=== PATIENT | female | born 1970 | race Caucasian/White ===

== ENCOUNTER 2018-02-11 07:30 | Emergency (ER) | payer OTHER ==
[~2018-02-11] VITALS: Ht 165.1 cm; Wt 64.5 kg
[2018-02-11 07:32] VITALS: TEMP 36.6; Ht 165.1 cm; Wt 64.5 kg
[2018-02-11] MEDS ORDERED: SODIUM CHLORIDE 0.9% 1000ML 1,000 ML IV SCH (07:46)
[2018-02-11 08:15] LABS: BASO % 0.3 %; BASO ABS # 0.02 K/uL (0-0.2); EOS % 3.1 %; HEMATOCRIT 39.3 % (37-47); HEMOGLOBIN 13.3 g/dL (12.0-16.0); IG# 0.01 K/uL (0.00-0.02); LYMPH % 26.3 %; LYMPH ABS # 1.71 K/uL (1.2-3.4); MEAN CELL VOLUME 89.5 fL (80-100); MEAN CORPUSCULAR HEMOGLOBIN 30.3 pg (25-34); MEAN CORPUSCULAR HGB CONC 33.8 g/dl (32-36); MEAN PLATELET VOLUME 9.3 fL (7.4-10.4); MONO % 6.6 %; MONO ABS # 0.43 K/uL (0.11-0.59); NEUT % 63.5 %; NEUT ABS # 4.14 K/uL (1.4-6.5); PLATELET COUNT 312 K/uL (130-400); RED CELL DISTRIBUTION WIDTH CV 12.6 % (11.5-14.5); RED CELL DISTRIBUTION WIDTH SD 40.8 fL (36.4-46.3); WHITE BLOOD COUNT 6.51 K/uL (4.8-10.8)
[2018-02-11] MEDS ORDERED: BCPILLS PO (08:21)
[2018-02-11 08:26] VITALS: O2SAT 94
[2018-02-11 08:26] LABS: PTT PATIENT 26.6 SECONDS (21.0-31.0)
--- NOTE | 2018-02-11 08:29 | DIAGNOSTIC IMAGING REPORT ---
HEAD CT NONCONTRAST CT DOSE: 638.56 mGycm HISTORY: Right-sided headache. Stroke TECHNIQUE: Multiaxial CT images of the head were performed without the use of intravenous contrast. Automated exposure control was utilized for this study. A dose lowering technique was utilized adhering to the principles of ALARA. Comparison: Head CT 11/04/2009.. Findings: The paranasal sinuses and mastoid air cells are clear. The calvarium and skull base are intact. The ventricles and sulci are within normal limits. There is no mass, hematoma, midline shift, or acute infarct. Impression: No acute intracranial abnormality. Electronically signed by: Mohamud Morrow M.D. 02/11/2018 8:28 AM Dictated Date/Time: 02/11/2018 8:13 AM
[2018-02-11 08:32] LABS: BLOOD UREA NITROGEN 12 mg/dl (7-18); CALCIUM 9.1 mg/dl (8.5-10.1); CARBON DIOXIDE 25 mmol/L (21-32); CREATININE 0.85 mg/dl (0.60-1.20); GLUCOSE 82 mg/dl (70-99); SODIUM 139 mmol/L (136-145)
[2018-02-11 08:37] LABS: CKMB 0.7 ng/ml (0.5-3.6)
--- NOTE | 2018-02-11 09:01 | EMERGENCY ROOM VISIT NOTE ---
History First contact with patient: 07:36 Chief Complaint: EYE PAIN Stated Complaint: PAIN IN RIGHT EYE History of Present Illness The patient is a 48 year old female who presents to the Emergency Room via private vehicle accompanied by male with complaints of "pain in right ankle. The patient states that 2 days ago she began with difficulty focusing with her right eye. This progressed irritation. She also notes that about 5 days ago she developed tingling in the right side of her mouth. Yesterday while eating she had difficulty pursing her lips around the fork to eat the food. This morning upon awakening she had facial droop at the right side of the mouth. She cannot fully close the right eye. She denies any history of diabetes, stroke, hypertension, high cholesterol. She does take control pills. She denies any speech troubles, or weakness in the extremities. Review of Systems A complete 10-point Review of Systems was discussed with the patient, with pertinent positives and negatives listed in the History of Present Illness. All remaining Review of Systems questions can be considered negative unless otherwise specified. Past Medical/Surgical History No pertinent. Family History CVA. Social History Smoking Status: Never Smoker Patient is employed and lives locally. Current/Historical Medications Scheduled Control Pills ( Control Pills), 1 TAB PO HS Prednisone Tab (Prednisone), 10 MG PO DIRECTED Valacyclovir Hcl (Valtrex), 1 GM PO TID Physical Exam Vital Signs Date Time Temp Pulse Resp B/P (MAP) Pulse Ox O2 Delivery O2 Flow Rate FiO2 02/11/18 10:34 78 16 108/78 98 Room Air 02/11/18 09:21 63 18 133/98 98 Room Air 02/11/18 08:32 60 17 117/84 98 Room Air 02/11/18 08:26 94 Room Air 02/11/18 08:14 60 19 121/80 100 02/11/18 07:58 68 02/11/18 07:32 36.6 76 20 109/69 98 Room Air Right Eye Acuity: 20/20 Left Eye Acuity: 20/25 Physical Exam VITAL SIGNS - Vital signs and nursing notes were reviewed. Stable. GENERAL -48-year-old female appearing her stated age who is in no acute distress. Communicates well with provider and answers questions appropriately. SKIN - Without rashes. No meningeal or petechial rash. No herpetic lesion. HEAD - NC/AT. When the patient angles her forehead, there is partial sparing of the right side with asymmetry. EYES - PERRL with EOMI bilaterally. Sclera anicteric. EARS - No deformities of external structures noted on gross examination bilaterally. External auditory canals without discharge or otorrhea. Tympanic membranes pearly cheng without retraction or bulging. No fluid or purulent material visualized behind the TM. Handle of malleus, umbo, cone of light, pars tensa/flaccid all easily visualized. NOSE - Midline and without cyanosis. No epistaxis or purulent drainage noted. MOUTH/OROPHARYNX - Without perioral cyanosis. Buccal mucosa pink and moist and without leukoplakia. Tongue midline with equal elevation of palate bilaterally. No tonsillar hypertrophy, erythema, or exudates noted. Fair dentition noted. When smiling or frowning the right side of the mouth droops. It is unilateral. NECK - Neck with FROM. Supple to palpation. No lymphadenopathy noted. No nuchal rigidity. LUNGS - Chest wall symmetric without accessory muscle use, intercostals retractions, or central cyanosis. Normal vesicular breath sounds CTA B/L. No wheezes, rales, or rhonchi appreciated. CARDIAC - RRR with S1/S2. No murmur, rubs, or gallops appreciated. EXTREMITIES - +5/5 strength noted in UE/LE bilaterally. NEUROLOGIC - Cranial nerves II through XII grossly intact. Sensory intact to light touch throughout. PSYCH - A&Ox3 and cooperates fully with examiner. Pt is very pleasant and interacts well with examiner. Medical Decision & Procedures ER Provider Diagnostic Interpretation: HEAD CT NONCONTRAST CT DOSE: 638.56 mGycm HISTORY: Right-sided headache. Stroke TECHNIQUE: Multiaxial CT images of the head were performed without the use of intravenous contrast. Automated exposure control was utilized for this study. A dose lowering technique was utilized adhering to the principles of ALARA. Comparison: Head CT 11/04/2009.. Findings: The paranasal sinuses and mastoid air cells are clear. The calvarium and skull base are intact. The ventricles and sulci are within normal limits. There is no mass, hematoma, midline shift, or acute infarct. Impression: No acute intracranial abnormality. Electronically signed by: Mohamud Morrow M.D. 02/11/2018 8:28 AM Dictated Date/Time: 02/11/2018 8:13 AM Laboratory Results 02/11/18 08:02 Red Blood Count 4.39, Mean Corpuscular Volume 89.5, Mean Corpuscular Hemoglobin 30.3, Mean Corpuscular Hemoglobin Concent 33.8, Mean Platelet Volume 9.3, Neutrophils (%) (Auto) 63.5, Lymphocytes (%) (Auto) 26.3, Monocytes (%) (Auto) 6.6, Eosinophils (%) (Auto) 3.1, Basophils (%) (Auto) 0.3, Neutrophils # (Auto) 4.14, Lymphocytes # (Auto) 1.71, Monocytes # (Auto) 0.43, Eosinophils # (Auto) 0.20, Basophils # (Auto) 0.02 02/11/18 08:02 Test 02/11/18 08:02 White Blood Count 6.51 K/uL (4.8-10.8) Red Blood Count 4.39 M/uL (4.2-5.4) Hemoglobin 13.3 g/dL (12.0-16.0) Hematocrit 39.3 % (37-47) Mean Corpuscular Volume 89.5 fL (80-100) Mean Corpuscular Hemoglobin 30.3 pg (25-34) Mean Corpuscular Hemoglobin Concent 33.8 g/dl (32-36) Platelet Count 312 K/uL (130-400) Mean Platelet Volume 9.3 fL (7.4-10.4) Neutrophils (%) (Auto) 63.5 % Lymphocytes (%) (Auto) 26.3 % Monocytes (%) (Auto) 6.6 % Eosinophils (%) (Auto) 3.1 % Basophils (%) (Auto) 0.3 % Neutrophils # (Auto) 4.14 K/uL (1.4-6.5) Lymphocytes # (Auto) 1.71 K/uL (1.2-3.4) Monocytes # (Auto) 0.43 K/uL (0.11-0.59) Eosinophils # (Auto) 0.20 K/uL (0-0.5) Basophils # (Auto) 0.02 K/uL (0-0.2) RDW Standard Deviation 40.8 fL (36.4-46.3) RDW Coefficient of Variation 12.6 % (11.5-14.5) Immature Granulocyte % (Auto) 0.2 % Immature Granulocyte # (Auto) 0.01 K/uL (0.00-0.02) Prothrombin Time 10.6 SECONDS (9.0-12.0) Prothromb Time International Ratio 1.0 (0.9-1.1) Activated Partial Thromboplast Time 26.6 SECONDS (21.0-31.0) Partial Thromboplastin Ratio 1.0 Anion Gap 7.0 mmol/L (3-11) Est Creatinine Clear Calc Drug Dose 72.8 ml/min Estimated GFR () 93.9 Estimated GFR (Non- 81.0 BUN/Creatinine Ratio 13.8 (10-20) Calcium Level 9.1 mg/dl (8.5-10.1) Magnesium Level 2.0 mg/dl (1.8-2.4) Total Creatine Kinase 86 U/L (26-192) Creatine Kinase MB 0.7 ng/ml (0.5-3.6) Creatine Kinase MB Ratio 0.8 (0-3.0) Troponin I < 0.015 ng/ml (0-0.045) Lyme Disease IgG Antibody NEG (NEG) Lyme Disease IgM Antibody NEG (NEG) Medications Administered Medications (Trade) Dose Ordered Sig/Marti Route Start Time Stop Time Status Last Admin Dose Admin Sodium Chloride 1,000 ml @ 50 mls/hr Q20H IV 02/11/18 07:46 02/11/18 11:32 DC 02/11/18 07:46 50 MLS/HR Prednisone (PredniSONE TAB) 60 mg NOW STAT PO 02/11/18 09:02 02/11/18 09:06 DC 02/11/18 09:25 60 MG Valacyclovir HCl (Valtrex Tab) 1,000 mg NOW STAT PO 02/11/18 09:02 02/11/18 09:06 DC 02/11/18 09:25 1,000 MG Artificial Tears (Lacri-Lube Oph Oint) 1 appln NOW STAT OP 02/11/18 10:52 02/11/18 10:53 DC 02/11/18 10:52 1 APPLN Medical Decision Patient was seen and evaluated as above in room A3. Review was performed of nursing notes and vital signs. After obtaining a thorough history and physical examination the above work up was performed. She presents to us today with unilateral facial droop. This was immediately discussed with attending physician. The forehead is not spared. When she wrinkles the forehead on the right there are less wrinkles in the left indicating a non-sparing likely peripheral event. CT of the head was performed. This was negative. IV access was established. No concerning leukocytosis, or anemia. No concerning metabolic abnormality. Lyme testing negative. The patient certainly presents with symptoms like that of Becerra's palsy. Because of her onset being over a number of days and her worsening of symptoms is consistent with that of a peripheral neuropathy, I believe that CVA is much less likely. I did discuss the case with the on-call neurologist, Dr. Burden. We discussed valacyclovir as well as prednisone with close follow-up in his office. It was recommended to obtain an MRI brain combo however the patient declined after thoroughly discussing benefit versus risk. She notes that she would prefer to wait until she sees a neurologist (I informed her that it was recommended by the neurologist). She was given her first dose of prednisone here as well as valacyclovir. She will be given a prescription for these. She was thoroughly educated upon worrisome symptoms in which to return. She will be given an eye patch and Lacri-Lube for the eye. She is to call Dr. Burden to schedule follow- up in the outpatient setting. The patient was educated upon management, had questions answered prior to discharge, and was discharged home in good condition. Case was discussed with the attending physician. In the evaluation and treatment of this patient, the following differential diagnoses were considered: Migraine Headache, Intracranial Hemorrhage, Subdural Hematoma, Subarachnoid Hemorrhage, Cerebral Aneurysm, Temporal/Giant Cell Arteritis, Tension Headache, Meningitis, Encephalitis, or Hydrocephalus. Impression Primary Impression: Becerra's palsy Departure Information Dispostion Home / Self-Care Condition GOOD Prescriptions Valacyclovir Hcl (VALTREX) 1 Gm Tab 1 GM PO TID, #20 TAB Prov: Tim Balderas PA-C 02/11/18 Prednisone Tab (PREDNISONE) 10 Mg Tab 10 MG PO DIRECTED for 10 Days, #39 TAB 6 tabs daily for 4 days, 5 tabs x 1 day, 4 tabs x 1 day, 3 tabs x 1 day,2 tab x 1 day, then 1 tab x 1 day. Prov: Tim Balderas PA-C 02/11/18 Referrals No Doctor, Assigned (PCP) Bernard Burden M.D. Patient Instructions [facility] Additional Instructions You were seen in the emergency department for suspected symptoms of Becerra's palsy. We have discussed this with the neurologist, Dr. Burden. He would like to see you in his office. Please call his office later today to schedule follow-up. In the meantime please initiate valacyclovir as well as prednisone. The valacyclovir is 1 g 3 times a day which is ideally every 8 hours for 7 days. Your given the first dose here. The second medication is prednisone. Please take this as 60 mg 5 days, and then 50 mg, then 40, then 30, then 20 then 10. Unfortunately, I had to prescribe this as 10 mg tablets therefore will feel like you are taking numerous tablets per day however this is only 10 mg tablet increments. Please call your family doctor to also schedule follow-up and inform them upon today's visit. As we discussed if you develops symptoms that are not like Becerra's palsy to include that of speech troubles, weakness in her arms or legs or any new/ concerning symptoms please return immediately. Thank you for your time.
[2018-02-11] MEDS ORDERED: VALA1TAB31 PO (09:50)
[2018-02-11] MEDS ORDERED: PRED10TA PO (09:50)
[2018-02-11] MEDS ORDERED: VANCOMYCIN IV STA (10:23)
[2018-02-11] MEDS ORDERED: SODIUM CHLORIDE 0.9% IV STA (10:23)
[2018-02-11] MEDS ORDERED: VANCOMYCIN CONSULT ACTIVE PRN (10:30)
[2018-02-11 10:34] VITALS: BP 108/78; PULSE 78; O2SAT 98
[2018-02-11] MEDS ORDERED: ARTIFICIAL TEARS OP OINT 3.5 GM TUBE OP STA (10:52)
== END 2018-02-11 11:01 | disposition home or self-care (01) ==
LOC: C.EDB 07:31 → C.EDA 11:01
DX: G51.0 Bell's palsy (principal)